=== PATIENT | female | born 1995 | race Caucasian/White ===

== ENCOUNTER 2018-01-21 07:49 | Outpatient (CLI) | payer OTHER | END 2018-01-21 07:50 | disposition home or self-care (01) | LOC: BICULT 07:49 | PROVIDERS: ATTEND Family Medicine | DX: Z34.80 Encounter for supervision of other normal pregnancy, unspecified trimester (principal); Z3A.21 21 weeks gestation of pregnancy | CPT/HCPCS: 76805 ==

== ENCOUNTER 2018-05-13 12:34 | Outpatient (CLI) | payer OTHER ==
--- NOTE | 2018-05-13 15:22 | ULT ---
OBSTETRIC SONOGRAM: History Third-trimester gestation. Poor growth. FINDINGS: Multiple transabdominal sonographic views of the gravid uterus show a single intrauterine gestation i n cephalic presentation. Uterine cervix is obscured by the ossified cranium. Grade I placenta is an terior. No evidence of placenta previa. No gross intracranial abnormalities are apparent. Advanced age limits anatomic detail. Amniotic fluid index=7.9. Subjectively lower limits of normal. Measurements are as follows: Biparietal diameter 37 weeks 0 days Head circumference 36 weeks 6 days Abdominal circumference 37 weeks 0 days Femur length 37 weeks 2 days Estimated date of delivery based on today's sonogram is 06/03/18. Hadlock percentile 57%. Estimated weight 6 pounds 13 ounces. IMPRESSION: Single viable intrauterine gestation with estimated gestational age based on today's sonogram of 37 w eeks 0 days. While amniotic fluid index was measured at 7.9, amniotic fluid is subjectively somewhat low. POS: [facility]
== END 2018-05-13 12:35 | disposition home or self-care (01) ==
LOC: SCSULT 12:34
PROVIDERS: ATTEND Family Medicine
DX: O36.5930 Maternal care for other known or suspected poor fetal growth, third trimester, not applicable or unspecified (principal); Z3A.37 37 weeks gestation of pregnancy
CPT/HCPCS: 76815

== ENCOUNTER 2018-05-22 23:48 | Inpatient (IN) | payer OTHER ==
[2018-05-23 00:22] VITALS: BMI 31.8
[2018-05-23] MEDS ORDERED: Ondansetron HCl/PF 4 MG/2 ML Vial IVP PRN ×3 (00:41→08:12)
[2018-05-23] MEDS ORDERED: Promethazine HCl 25 MG/ML VIAL IM PRN ×2 (00:41→03:06)
[2018-05-23] MEDS ORDERED: Butorphanol Tartrate 1 MG/ML VIAL SLOW IVP PRN (00:41)
[2018-05-23] MEDS ORDERED: Acetaminophen 500 MG TAB PO PRN (00:41)
[2018-05-23] MEDS ORDERED: Misoprostol 200 MCG TAB RC PRN (00:45)
[2018-05-23] MEDS ORDERED: NS w/ Oxytocin 10 units 500 ML IV SCH ×2 (00:45)
[2018-05-23] MEDS ORDERED: Lidocaine 1% (PF) 30 ML VIAL SC PRN (00:45)
[2018-05-23] MEDS ORDERED: Ibuprofen 800 MG TAB PO PRN (00:45)
[2018-05-23] MEDS: Lactated Ringer's 1,000 ML IV SCH ×2 (01:00→04:09)
[2018-05-23 01:16] LABS: Hemoglobin 11.3 g/dL (12.0-16.0); Mean Corpuscular HGB CONC 33.9 g/dL (32.0-36.0); Mean Corpuscular Hemoglobin 28.3 pg (27.0-31.0); Mean Corpuscular Volume 83.3 fL (78.0-98.0); Mean Platelet Volume 9.5 fL (7.4-10.4); Platelet Count 181 thou/uL (130-400); Red Blood Cell (RBC) Count 3.99 mill/uL (4.20-5.40); White Blood Cell (WBC) Count 11.4 thou/uL (4.8-10.8)
[2018-05-23 02:07] LABS: HBSAg Index 0.17 S/CO (0-0.99); Hep B Surf Ag Non-Reactive S/CO (NonReactive)
[2018-05-23] MEDS ORDERED: DISCONTINUE ALL PREVIOUS NARCOTICS FS SCH (02:30)
[2018-05-23] MEDS ORDERED: Bupivacaine 0.5% 20 ML, fentaNYL Citrate/PF 400 MCG in Sodium Chloride 0.9% 72 ML EPIDURAL SCH (02:30)
[2018-05-23] MEDS ORDERED: Eucerin (Mineral Oil/Petrolatum,White) 30 gm Jar TOP PRN (03:06)
[2018-05-23] MEDS ORDERED: ePHEDrine/0.9% NaCl/PF SYRINGE 50 mg/10 ml SLOW IVP PRN (03:06)
[2018-05-23] MEDS ORDERED: Acetaminophen 325 MG TAB PO PRN (03:06)
[2018-05-23] MEDS ORDERED: Naloxone HCl 0.4 mg/ml Vial IVP PRN ×2 (03:06)
[2018-05-23] MEDS ORDERED: diphenhydrAMINE 50 MG/ML VIAL IVP PRN (03:06)
[2018-05-23] MEDS ORDERED: Lactated Ringer's 500 ML IV PRN (03:06)
[2018-05-23] MEDS ORDERED: Communication Order-Pharmacy FS SCH (03:15)
[2018-05-23] MEDS ORDERED: fentaNYL Citrate/PF 400 MCG, Bupivacaine 0.5% 20 ML in Sodium Chloride 0.9% 72 ML EPIDURAL SCH (03:15)
[2018-05-23 04:20] LABS: Syphilis Antibody Nonreactive (Nonreactive); Syphilis Antibody Index 0.05 S/CO (<1.00 Non-Reactive)
[2018-05-23] MEDS: NS / Oxytocin 40 units/1000ml 1,000 ML IV SCH ×2 (05:00→06:47)
--- NOTE | 2018-05-23 05:25 | PDOC.OPDEL ---
OB Operative/Delivery Note Delivery Dr/Surgeon: Stefan (Standy by for Dr Toya Dumont) Assist: Maria G, patient's RN Pre-Delivery Diagnosis: active labor Procedure/Post Delivery Dx: spontaneous vaginal delivery - Findings A Sex: male - Additional Findings/Plan Placenta delivered: spontaneous Estimated blood loss: 100 Compilations/Other Findings: I was called for stand-by as Dr Dumont was enroute. I arrived within 2 minutes of being called as baby was delivering, Maria G was first at perineum (patient's nurse). No shoulder issues, baby had effortless, precipitous delivery). Baby vigorous. Placenta out at 0502 (2 minutes after baby) Loose body cord x 1 at No lacerations. Redundant vaginal mucosa noted at introitus but non-lacerated Post delivery plan: routine recovery (Patient also has handwritten note in chart )
[2018-05-23] MEDS ORDERED: Preparation H Ointment 28 GM TUBE PR PRN (08:12)
[2018-05-23] MEDS ORDERED: Benzocaine/Menthol 20-0.5% 60 ML CAN TOP PRN (08:12)
[2018-05-23] MEDS ORDERED: traMADol HCl 50 MG TAB PO PRN (08:12)
[2018-05-23] MEDS ORDERED: Milk Of Magnesia 30 ML UDCUP PO PRN (08:12)
[2018-05-23] MEDS ORDERED: Acetaminophen/Codeine 30-300mg Tablet PO PRN (08:12)
[2018-05-23] MEDS ORDERED: Lanolin Ointment 7 GM TUBE TOP PRN (08:12)
[2018-05-23] MEDS ORDERED: Bisacodyl 10 MG SUPP PR PRN (08:12)
[2018-05-23] MEDS ORDERED: HYDROcodone/Acetaminophen 5/325 mg Tablet PO PRN (08:12)
[2018-05-23] MEDS ORDERED: diphenhydrAMINE 25 MG CAP PO PRN (08:12)
[2018-05-23] MEDS ORDERED: NS / Oxytocin 40 units/1000ml 1,000 ML IV SCH (08:12)
[2018-05-23] MEDS: Ibuprofen 800 MG TAB PO SCH ×3 (09:37→21:24)
[2018-05-23] MEDS: Prenatal Vitamin 1 TAB PO SCH (10:38)
[2018-05-23] MEDS: Docusate Calcium (SURFAK) 240 MG CAP PO SCH ×2 (10:38→21:24)
[2018-05-24] MEDS: Ibuprofen 800 MG TAB PO SCH ×3 (05:56→21:20)
[2018-05-24] MEDS: Docusate Calcium (SURFAK) 240 MG CAP PO SCH ×2 (09:55→21:20)
[2018-05-24] MEDS: Prenatal Vitamin 1 TAB PO SCH (09:55)
[2018-05-25] MEDS: Ibuprofen 800 MG TAB PO SCH (05:19)
[2018-05-25 07:51] VITALS: BP 128/69; TEMP 98.6
[2018-05-25] MEDS: Prenatal Vitamin 1 TAB PO SCH (09:50)
[2018-05-25] MEDS: Docusate Calcium (SURFAK) 240 MG CAP PO SCH (09:50)
== END 2018-05-25 13:55 | disposition home or self-care (01) | DRG 775 ==
LOC: L&D/OP 23:48 → L&D 05-23 00:11 → 3SW 05-23 07:58
PROVIDERS: ADMIT Family Medicine; ATTEND Family Medicine
PROC: 10E0XZZ Delivery of Products of Conception, External Approach (ICD-10-PCS; principal; 2018-05-23)
DX: O41.03X0 Oligohydramnios, third trimester, not applicable or unspecified (principal); O69.81X0 Labor and delivery complicated by cord around neck, without compression, not applicable or unspecified; Z3A.39 39 weeks gestation of pregnancy; Z37.0 Single live birth; O76 Abnormality in fetal heart rate and rhythm complicating labor and delivery
CPT/HCPCS: 51702; 85027; 86780; 86850; 86900; 86901; 87340; J3010; J3490; J7050

== ENCOUNTER 2019-06-11 18:44 | Emergency (ER) | payer OTHER, SELFPAY ==
[2019-06-11] MEDS ORDERED: Ondansetron ODT 4 MG TAB ONE (19:41)
--- NOTE | 2019-06-11 20:07 | RAD ---
RIGHT WRIST THREE VIEWS: History: Fall on wrist. FINDINGS: There is subtle irregularity to the base of the fifth metacarpal. This is suspicious for a nondisplac ed fracture. Clinical correlation as to the exact area of patient's pain. IMPRESSION: Suggestion of a nondisplaced base of fifth metacarpal fracture. POS: [facility]
--- NOTE | 2019-06-11 20:08 | RAD ---
RIGHT WRIST THREE VIEWS: History: Wrist injury. FINDINGS: There is some subtle lucency along the cortex of the base of the fifth metacarpal suspicious for a mendez btle fracture. No other findings. IMPRESSION: Findings suspicious for a base of fifth metacarpal fracture. POS: [facility]
== END 2019-06-11 20:04 | disposition home or self-care (01) ==
LOC: ERS 18:44
DX: S62.316A Displaced fracture of base of fifth metacarpal bone, right hand, initial encounter for closed fracture (principal); Z87.891 Personal history of nicotine dependence; W19.XXXA Unspecified fall, initial encounter
CPT/HCPCS: 29125; 99406; Q0162

== ENCOUNTER 2019-07-30 10:43 | Emergency (ER) | payer SELFPAY ==
[2019-07-30] MEDS ORDERED: Acetaminophen 500 MG TAB ONE (11:16)
[2019-07-30 12:04] LABS: Bilirubin Negative (Negative); Blood, Urine Trace (Negative); Clarity Turbid (Clear); Glucose, Urine (Dipstick) Normal (Negative); Leukocyte 500 Leu/uL (Negative); Nitrite 1+ (Negative); Protein, Urine (Dipstick) 20 mg/dL (Neg-Trace); Urobilinogen Normal mg/dL (Less than 2); WBC/HPF Greater than 50 HPF (0-3)
[2019-07-30 12:06] LABS: Pregnancy Test - Urine (BHCG) Negative (Negative); Pregu Control Background? CLEAR/WHITE (CLR/WHITE); Pregu Control Bar Appear? YES (CONTROL BAR); Specific Gravity 1.027 (1.002-1.036)
[2019-07-30 12:18] LABS: Bacteria/HPF 2+ HPF (None Seen)
== END 2019-07-30 13:46 | disposition home or self-care (01) ==
LOC: ERS 10:43
DX: N12 Tubulo-interstitial nephritis, not specified as acute or chronic (principal); F41.9 Anxiety disorder, unspecified
CPT/HCPCS: 81003; 81015; 81025; 87804; 99283

== ENCOUNTER 2019-08-03 22:21 | Emergency (ER) | payer SELFPAY ==
[2019-08-04 01:14] LABS: Bilirubin Negative (Negative); Blood, Urine 2+ (Negative); Clarity Turbid (Clear); Glucose, Urine (Dipstick) Normal (Negative); Leukocyte 500 Leu/uL (Negative); Nitrite Negative (Negative); Protein, Urine (Dipstick) 20 mg/dL (Neg-Trace); WBC/HPF Greater than 50 HPF (0-3)
[2019-08-04 01:15] LABS: Bacteria/HPF 1+ HPF (None Seen); Pregnancy Test - Urine (BHCG) Negative (Negative); Pregu Control Background? CLEAR/WHITE (CLR/WHITE); Pregu Control Bar Appear? YES (CONTROL BAR); Specific Gravity 1.028 (1.002-1.036)
== END 2019-08-04 01:46 | disposition home or self-care (01) ==
LOC: ERS 22:21
DX: N10 Acute pyelonephritis (principal); Z79.899 Other long term (current) drug therapy
CPT/HCPCS: 81003; 81015; 81025; 99283

== ENCOUNTER 2020-06-13 20:55 | Day surgery (SDC) | payer OTHER ==
[2020-06-13 21:27] VITALS: BP 133/77; TEMP 98.4; BMI 35.9
[2020-06-13] MEDS ORDERED: hydrALAZINE 20 MG/ML VIAL SLOW IVP PRN (21:57)
--- NOTE | 2020-06-13 22:41 | PDOC.FPROB ---
FMR OB H&P: HPI - History of Present Illness Chief Complaint: Vaginal pain, clear discharge Indentification: 25 yo History of Present Illness: Patient presents to L&D for vaginal pain and clear discharge that has been present for 2 days. She describes the pain as sharp, stabbing vaginal pain that is constant. She reports similar pain prior to having her first child, but does not believe she is have contractions. She reports that she feels as if she is peeing her pants and that the leakage is worse with sneezing, coughing, and standing up. She reports that the leakage is constant and she has had to change her pants one. She denies vaginal bleeding and endorses good movement. She reports that the last time she had sexual intercourse was over 2 months ago and was with the same partner. She denies any history of STIs. Denies dysuria, headache, N/V/D, abdominal pain. Reports hx of gDM and gHTN in previous pregnancies. Did not f/u for 2 hour confirmatory test this , but reports that she measures her sugars at home and has changed her diet. Reports blood sugar of 90 2 hrs PP yesterday even. Patient was taking an aspirin this but stopped taking it 3 weeks ago. Primary Care Physician: KORTNEY Robles FMR OB H&P: Current - Care : 3 Para: 2 Due date: 07/04/2020 - OB Labs Blood type: O RH: positive Antibody Screen: negative HIV: negative RPR: negative HepBsAg: negative Rubella: immune Urine drug screen: not done Gonorrhea: negative Chlamydia: negative 1 hour gtt: 192 3 hour GTT: Not done A1c: 5.4 (05/27/2020) GBS: unknown H&H: 11.2/33.2 (05/27) Platelets: 215 Additional labs: CMP: normal Pr:Cr ratio: 173 FMR OB H&P: History - Past Medical History PMH: Denies - OB History OB History: Hx of GDM, Hx of gHTN, Hx of PPH at 38 wks - complicated by gHTN at 40 wks - complicated by PPH, laceration (unknown degree), A1GDM - [employer] History [employer] History: LMP: 09/28/2019 Last Pap: 2018, no hx of abnormal paps Denies STIs - Surgical History Sx History: Tonsillectomy/adenoidectomy, appendectomy - Social History Social History: Denies t/a/d. Lives in [place] with partner and children. Not currently working - Family History Family History: Dad: Diabetes, HTN Mom: stroke at young age, CAD FMR OB H&P: Medications - Current Home Medications: Medication Instructions Recorded Confirmed Type Vit 10/Iron/Folic/Dha 1 tablet PO DAILY 01/16/16 06/13/20 History [Vitafol-OB+DHA Combo Pack] metroNIDAZOLE [Flagyl] 500 mg PO BID #14 tab 06/13/20 Rx Allergies/Adverse Reactions: Allergies Allergy/AdvReac Type Severity Reaction Status Date / Time No Known Drug Allergies Allergy Verified 06/13/20 21:19 FMR OB H&P: ROS - Review of Systems General: denies: fever/chills Eyes: denies: vision changes, double vision ENT: denies: nasal congestion, rhinorrhea Cardiovascular: reports: edema. denies: chest pain, palpitation Respiratory: denies: cough, shortness of breath Gastrointestinal: denies: abdominal pain, nausea, vomiting, diarrhea Genitourinary (Female): reports: vaginal discharge, vaginal pain. denies: dysuria, vaginal bleeding Musculoskeletal: denies: pain, stiffness Neurologic: denies: numbness Integumentary: denies: itching, rash Psychological: reports: anxiety. denies: depression FMR OB H&P: Vital Signs - Maternal Vital signs: Vital Signs - First Documented Temp Pulse Resp BP 98.4 F 86 18 133/77 06/13/20 21:18 06/13/20 21:18 06/13/20 21:18 06/13/20 21:18 FMR OB H&P: Physical Exam - Physical Exam General: NAD HEENT: normocephalic and atraumatic, grossly normal vision, grossly normal hearing Neck: supple, FROM Heart: RRR, normal S1/S2, no murmurs/rubs/gallops General: CTAB, no respiratory distress, good air movement, no rales/rhonchi, no wheezing Abdomen: gravid, non-tender Musculoskeletal: FROM in all four extremities Neurological: cranial nerves II through XII intact, sensation to pain,touch and proprioception grossly normal Skin: no rash Lymphatic: no unusual bruising or bleeding, no purpura, no petechia Psychiatric: intact recent and remote memory, good judgement and insight, normal mood and affect - Pelvic Exam Vulva: normal hair distribution, appropriate dejuan stage Deviation from normal: thick, yellow, malodorous discharge; no gross leakage with valsalva SVE: 3/0/-2 Presentation: breech FMR OB H&P: A/P - Problem List (1) Bacterial vaginosis Current Visit: Yes Status: Acute Code(s): N76.0 - ACUTE VAGINITIS; B96.89 - OTH BACTERIAL AGENTS THE CAUSE OF DISEASES CLASSD [id number] (2) Term Current Visit: Yes Status: Acute Code(s): Z34.80 - ENCOUNTER FOR SUPRVSN OF NORMAL , UNSP TRIMESTER Comment: Discussion: Date/Time: 06/13/20 2241 25 yo @ 37.1 wga by LMP/16.6 wk US who presents for vaginal pain and discharge sIUP r/o PROM - No contractions on toco - FHT: reactive - SVE: 3/0/-2 - Breech on bedside US - Follows with MFM for IUGR, released yesterday due to normal weight - Failed 1 hr glucose test, did not f/u for 2 hr confirmatory test, reports that she is checking her sugars at home, reports 2 hr PP of 90 yesterday evening - Amnisure ordered, negative - VP3 ordered, positive for BV Breech Presentation - discussed possibility of external cephalic version - will call [facility] tomorrow to schedule patient Will discharge patient home with prescription for BV infection; continue routine care This H&P was discussed with Dr. Bocanegra and Dr. Pro who agree with the above documentation and plan.
[2020-06-13 22:48] LABS: Amnisure Test No Membranes Rupture (No Rupture)
[2020-06-13 22:49] LABS: Amnisure Internal Control QC ACCEPTABLE (ACCEPTABLE)
[2020-06-14] MEDS ORDERED: FLU VACC QS2020-21(6MOS UP)/PF 60 MCG/0.5 ML SYRINGE IM ONE (09:00)
== END 2020-06-13 23:35 | disposition home or self-care (01) ==
LOC: L&D/OP 20:55
PROVIDERS: ATTEND Family Medicine
DX: O99.89 Other specified diseases and conditions complicating pregnancy, childbirth and the puerperium (principal); R10.2 Pelvic and perineal pain; N89.8 Other specified noninflammatory disorders of vagina; O23.593 Infection of other part of genital tract in pregnancy, third trimester; B96.89 Other specified bacterial agents as the cause of diseases classified elsewhere; O32.1XX0 Maternal care for breech presentation, not applicable or unspecified; Z3A.37 37 weeks gestation of pregnancy
CPT/HCPCS: 84112; 87081; 87480; 87510; 87660

== ENCOUNTER 2020-06-24 22:11 | Inpatient (IN) | payer OTHER ==
[~2020-06-24 22:11] MED LIST: Bupivacaine 0.25% HCL 30 ML VIAL ONE
[2020-06-24 22:43] VITALS: BMI 35.9
[2020-06-24 23:20] LABS: Amnisure Test No Membranes Rupture (No Rupture)
[2020-06-24 23:21] LABS: Amnisure Internal Control QC ACCEPTABLE (ACCEPTABLE)
[2020-06-24] MEDS ORDERED: hydrALAZINE 20 MG/ML VIAL SLOW IVP PRN (23:25)
--- NOTE | 2020-06-24 23:25 | PDOC.FPROB ---
FMR OB H&P: HPI - History of Present Illness Chief Complaint: thinks water broke History of Present Illness: Pt is a 25 yo at 38.5 by sure LMP confirmed with 17.5 wk sono who presents thinking her water broke at 2200. She has had contractions for a week, and they are getting closer together q10 min and more intense. Endorses good movement, denies VB/VD. has been complicated by gHTN and A1GDM. FMR OB H&P: Current - Care : 3 Para: 2 Gestational age: 38.5 Due date: 07/04/20 Dating Criteria: LMP/17.5wk sono - OB Labs Blood type: O RH: positive HIV: negative RPR: negative Gonorrhea: negative Chlamydia: negative Pap Smear: NILM 01/2018 1 hour gtt: 192 A1c: 5.1 GBS: positive FMR OB H&P: History - Past Medical History PMH: psoriasis, migraines, Hep C Ab pos with viral load negative - OB History OB History: 2016- @ 40 weeks , PPH, laceration of uknown degree, A1GDM 2018- @ 38 weeks , gHTN this : gHTN and A1GDM GBS positive - [employer]GER [employer] History [employer] History: LMP 09/28/19 Menarche 13 - Surgical History Sx History: appendectomy, tonsillectomy/adenoidectomy - Social History Social History: denies drug, tobacco or alcohol use - Family History Family History: mother: stroke, MIO s /p stent father: DM. HTN FMR OB H&P: Medications - Current Home Medications: Medication Instructions Recorded Confirmed Type Vit 10/Iron/Folic/Dha 1 tablet PO DAILY 01/16/16 06/24/20 History [Vitafol-OB+DHA Combo Pack] metroNIDAZOLE [Flagyl] 500 mg PO BID #14 tab 06/13/20 06/24/20 Rx Allergies/Adverse Reactions: Allergies Allergy/AdvReac Type Severity Reaction Status Date / Time No Known Drug Allergies Allergy Verified 06/24/20 22:36 FMR OB H&P: ROS - Review of Systems General: denies: fever/chills Eyes: denies: vision changes, double vision Cardiovascular: denies: chest pain, edema Respiratory: denies: cough, shortness of breath Gastrointestinal: denies: abdominal pain, nausea, vomiting, bright red blood Genitourinary (Female): reports: contractions. denies: vaginal discharge, vaginal bleeding, vaginal pressure Neurologic: denies: numbness, weakness Integumentary: denies: itching, rash Hematologic/Lymphatic: denies: prolonged or excessive bleeding FMR OB H&P: Vital Signs - Maternal Vital signs: Vital Signs - First Documented Temp Pulse Resp BP 98.7 F 103 H 18 133/79 06/24/20 22:35 06/24/20 22:35 06/24/20 22:35 06/24/20 22:35 FMR OB H&P: Physical Exam - Physical Exam General: NAD, awake, alert and oriented HEENT: normocephalic and atraumatic, PERRLA, EOMI, MMM, conjunctiva clear Neck: supple, FROM Chest: non-tender to palpation Heart: RRR, normal S1/S2 General: CTAB Abdomen: soft, gravid Musculoskeletal: normal gait and station, pulses present Neurological: cranial nerves II through XII intact, no clonus, no focal deficit Skin: no rash Lymphatic: no unusual bruising or bleeding Psychiatric: intact recent and remote memory - Pelvic Exam SVE: Membranes: intact Presentation: cephalic FMR OB H&P: A/P Disposition: Pt is a 25 yo at 38.5 by sure LMP confirmed with 17.5 wk sono who presents thinking her water broke at 2200. # Rule out labor -Amnisure negative -initial cervical check , repeat was -donna q -patient desires epidural #GBS positive -will start Penicillin ppx as patient is in labor #A1GDM -aware, monitor sugars #gHTN -aware, monitor BP Admit for labor and anticipate . Discussion: Date/Time: 06/24/202305 This H&P was discussed with Dr. Cormier and Dr. Reddy who agree with the above documentation and plan. Addendum - Attending - Attending Attestation Date/Time: 06/24/20 3710 I personally evaluated the patient and discussed the management with Dr. Pal I agree with the History, Examination, Assessment and Plan documented above with any addition or exceptions noted below- 25 yo @38.5 weeks presented c/o LOF and ctx q10 min. (+) FM Denies any VB, JEWELL. Initial exam /-2. Cat 1 FHTs [place] ctx q7-10 min. Amnisure negative. Patient walked for 1 hour and repeat exam /-2 and then had SROM. Will admit to L&D for labor and SROM. GBS(+) will start PCN prophylaxis
[2020-06-25] MEDS ORDERED: Acetaminophen 500 MG TAB PO PRN (00:36)
[2020-06-25] MEDS ORDERED: Misoprostol 200 MCG TAB PR PRN (00:36)
[2020-06-25] MEDS ORDERED: Lidocaine 1% (PF) 30 ML VIAL SC PRN (00:36)
[2020-06-25] MEDS ORDERED: Ibuprofen 800 MG TAB PO PRN (00:36)
[2020-06-25] MEDS ORDERED: Ondansetron PF 4 MG/2 ML Vial IVP PRN ×2 (00:36→02:13)
[2020-06-25] MEDS ORDERED: NS / Oxytocin 40 units/1000ml 1,000 ML IV PRN (00:36)
[2020-06-25] MEDS ORDERED: Promethazine HCl 25 MG/ML VIAL IM PRN ×2 (00:36→02:13)
[2020-06-25] MEDS ORDERED: Carboprost 250 MCG/ML AMP IM PRN (00:36)
[2020-06-25] MEDS ORDERED: Butorphanol Tartrate 1 MG/ML VIAL SLOW IVP PRN (00:36)
[2020-06-25] MEDS ORDERED: Penicillin G Potassium 5 MILL.UNITS VIAL ONE (00:39)
[2020-06-25] MEDS ORDERED: Lactated Ringer's 1,000 ML IV SCH (00:45)
[2020-06-25 00:56] LABS: Hemoglobin 10.8 g/dL (12.0-16.0); Mean Corpuscular HGB CONC 33.4 g/dL (32.0-36.0); Mean Corpuscular Volume 80.9 fL (78.0-98.0); Mean Platelet Volume 9.5 fL (7.4-10.4); Platelet Count 222 thou/uL (130-400); RBC Distribution Width 14.2 % (11.5-14.5); White Blood Cell (WBC) Count 11.9 thou/uL (4.8-10.8)
[2020-06-25] MEDS ORDERED: Penicillin G Potassium 5 MILL.UNITS in Sodium Chloride 0.9% 100 ML IVPB SCH (01:00)
[2020-06-25 01:28] LABS: Syphilis Antibody Nonreactive (Nonreactive); Syphilis Antibody Index 0.04 S/CO (<1.00 Non-Reactive)
[2020-06-25 01:33] LABS: HBSAg Index 0.15 S/CO (0-0.99); Hep B Surf Ag Non-Reactive S/CO (NonReactive)
[2020-06-25] MEDS ORDERED: Fentanyl 4 mcg/Bup 0.1% Cadd 100 ML ONE (01:43)
[2020-06-25 01:50] LABS: Glucose 112 mg/dL (70-105)
[2020-06-25] MEDS ORDERED: Lactated Ringer's 500 ML IV PRN (02:13)
[2020-06-25] MEDS ORDERED: diphenhydrAMINE 50 MG/ML VIAL IVP PRN (02:13)
[2020-06-25] MEDS ORDERED: Naloxone HCl 0.4 mg/ml Vial IVP PRN ×2 (02:13)
[2020-06-25] MEDS ORDERED: EPHEDRINE 25 MG/5 ML SYRINGE SLOW IVP PRN (02:13)
[2020-06-25] MEDS ORDERED: Communication Order-Pharmacy FS SCH (02:15)
[2020-06-25] MEDS ORDERED: Fentanyl 4 mcg/Bupivacaine 0.1% Cassette 100 ML EPIDURAL SCH (02:15)
[2020-06-25] MEDS ORDERED: Penicillin G 2.5 MILL.units 2.5 MILL.UNITS in Premix Bag 1 BAG IVPB SCH (04:00)
[2020-06-25] MEDS ORDERED: Adacel (T-DAP) 0.5 ML SYRINGE IM ONE (05:48)
[2020-06-25] MEDS ORDERED: Lanolin Ointment 7 GM TUBE TOP PRN (05:48)
[2020-06-25] MEDS ORDERED: hydrALAZINE 20 MG/ML VIAL SLOW IVP PRN (05:48)
[2020-06-25] MEDS ORDERED: Bisacodyl 10 MG SUPP PR PRN (05:48)
[2020-06-25] MEDS ORDERED: Milk Of Magnesia 30 ML UDCUP PO PRN (05:48)
[2020-06-25] MEDS ORDERED: Acetaminophen/Codeine 30-300mg Tablet PO PRN (05:48)
[2020-06-25] MEDS ORDERED: NS / Oxytocin 40 units/1000ml 1,000 ML IV SCH (06:00)
--- NOTE | 2020-06-25 06:33 | PDOC.EVN ---
Event Note - Event Note Event Note: FM Attending I was present, assisted and supervised the of a viable female infant in vertex presentation to this 25 yo @38.3 weeks. Apgars 7/9. No nuchal cord, Shoulders and body delivered easily. Placenta delivered spontaneously and intact. 3V cord. No epis or lacerations. Redundant vaginal tag/hymenal remnant noted at delivery. QBL 250mL. Infant and mother in stable condition.
--- NOTE | 2020-06-25 06:44 | PDOC.EVN ---
Event Note - Event Note Event Note: Labor Progress: Patient remained resting comfortably on all checks. Vitals WNL. monitoring showed a category 1 strip throughout labor. 6/70 /-2 @015 6/80/-2 @ 0230, epidural 7/90/-2 @0500 AROM clear fluid with scant blood, complaining of pressure 9.5/100/-2 @ 0515, complaining of alot of pressure 10/100/-1 @ 0531
[2020-06-25] MEDS: Acetaminophen 325 MG TAB PO PRN ×2 (09:51→20:27)
[2020-06-25] MEDS: Ferrous Sulfate 325 MG TAB PO SCH ×2 (10:58→17:29)
[2020-06-25] MEDS: Ibuprofen 800 MG TAB PO SCH ×3 (10:58→21:37)
[2020-06-25] MEDS: Prenatal Vitamin 1 TAB PO SCH (11:26)
[2020-06-25] MEDS: Docusate Calcium (SURFAK) 240 MG CAP PO SCH ×2 (11:26→21:37)
[2020-06-25 12:06] LABS: SARS-CoV-2 MS2 Positive; SARS-CoV-2 N Gene Negative; SARS-CoV-2 S Gene Negative; SARS-CoV-2 by NAA Not Detected (NotDetected); SARS-CoV-2 orf1ab Negative
--- NOTE | 2020-06-25 12:17 | DN ---
DATE OF PROCEDURE: 06/25/2020 DELIVERING PHYSICIANS: 1. Jacque Pal MD, PGY-1. 2. Maria G Robles MD, PGY-2. ATTENDING PHYSICIAN: Maris Reddy MD PROCEDURE: Spontaneous vaginal delivery. ANESTHESIA: Epidural. QBL: 250 mL. PREOPERATIVE DIAGNOSES: 1. Term intrauterine in labor. 2. History of A1 gestational diabetes and gestational hypertension. POSTOPERATIVE DIAGNOSES: 1. Term intrauterine , delivered. 2. History of A1 gestational diabetes and gestational hypertension. DELIVERY NOTE: A 25-year-old female, G3, P2, at 38 and 5 weeks, who delivered a viable female infant at 0536 following an uneventful antepartum course. A vigorous female was delivered over an intact perineum in the occipitoanterior position. Anterior shoulder and remainder of the body delivered. No nuchal cord. The head was held down and mouth and nares were bulb suctioned. Cord clamped after delayed cord clamping and cut and cord blood collected. Placenta delivered intact in Rangel presentation with a 3-vessel cord noted. Fundal massage was performed. The fundus was firm. The cervix and vagina were inspected and found to be free of laceration. However, of note, there was redundant vaginal tissue that was apparent on exam. Infant went to nursery in good condition for routine care. Apgars were 7 and 9 at 1 and 5 minutes respectively. The patient tolerated delivery well and went to after routine recovery care. Dr. Reddy was present and teaching throughout the whole delivery. Job ID: [id number] MTDD
[2020-06-26] MEDS: Ibuprofen 800 MG TAB PO SCH ×2 (05:25→14:38)
--- NOTE | 2020-06-26 05:53 | PDOC.OBPPN ---
FMR OB PN: Subj - Interval History Hospital Day: 3 Day: 1 Chief Complaint: breast tenderness with feeding Indentification: 25F >3 delivered viable F @ 38.5wga on 06/25 @ 0536 via Interval History: Mild lochia, uterus firm, breast feeding with tenderness, mild vaginal pain FMR OB PN: Obj - Maternal Vital signs: BP: [121/64] HR: [85] RR: [18] Tmax: [99.9] Pox: [98]% on [RA] Wt: [101.15kg] - Urine output I&O: 06/24/20 06/25/20 06/26/20 06:59 06:59 06:59 Intake Total 960 Output Total 888 Balance 72 - Lochia Lochia: mild - Pain Management Intervention: oral medication FMR OB PN: Exam - Physical Exam General: NAD, awake, alert and oriented HEENT: normocephalic and atraumatic, EOMI, MMM Neck: supple, FROM, trachea midline Chest: non-tender to palpation Breast: symmetric, no erythema, no nipple discharge Heart: RRR, normal S1/S2 General: CTAB, no respiratory distress Abdomen: soft, fundus(cm) (below umbilicus), bowel sound present Musculoskeletal: normal gait and station, pulses present, FROM in all four extremities Neurological: cranial nerves II through XII intact, sensation to pain,touch and proprioception grossly normal Skin: no rash, good tugor, capillary refill <2 seconds : no edema, appropriately tender Lymphatic: no unusual bruising or bleeding, no purpura Psychiatric: intact recent and remote memory, good judgement and insight, normal mood and affect FMR OB PN: Data - Labs Lab results: Laboratory Results - last 24 hr 06/25/20 06/25/20 06/25/20 01:03 11:50 21:47 POC Glucose 153 H 110 H SARS-CoV-2 (PCR) Not Detected 06/26/20 05:35 POC Glucose 140 H SARS-CoV-2 (PCR) FMR OB PN: A/P - Problem List (1) care and examination Current Visit: Yes Status: Acute Code(s): Z39.2 - ENCOUNTER FOR ROUTINE FOLLOW-UP Disposition: Patient is a 25F >3 that delivered a viable F infant via at 38.5wga on 06/25 @ 0536. # Day 1 - with some tenderness; will have see patient today -mild lochia, mild vaginal pain -endorses some back pain where the epidural was -encourage routine care -encourage patient to f/u at [facility] at 2 weeks, baby to f/u at [facility] on Wednesday -likely d/c today pending baby's bili #Hx of gHTN -Patient's blood pressures have ranged 120-139/64-79 -encourage mother to continue to monitor blood pressure at home -will f/u at post visit #Hx of A1GDM -accuchecks yesterday: 112, 153, 110, 140 -will follow up at 6wk check Diet: Regular Dispo: Likely d/c today pending baby's bili; patient to f/u at [facility] in 2 weeks Discussion: Date/Time: 06/26/20 3499 This H&P was discussed with [Nona] who agrees with the above documentation and plan. Signature: Maria G Robles MD PGY-2 Addendum - Attending - Attending Attestation Date/Time: 06/26/20 3689 I personally evaluated the patient and discussed the management with Dr. Robles I agree with the History, Examination, Assessment and Plan documented above with any addition or exceptions noted below. possible d/c this afternoon if baby able to have f/u tomorrow. Needs f/u for gHTN w/n 72 hrs of d/c at PNC.
[2020-06-26] MEDS: Ferrous Sulfate 325 MG TAB PO SCH ×2 (09:08→17:05)
[2020-06-26] MEDS: Prenatal Vitamin 1 TAB PO SCH (09:08)
[2020-06-26] MEDS: Docusate Calcium (SURFAK) 240 MG CAP PO SCH (09:08)
[2020-06-26 11:55] VITALS: BP 114/57; TEMP 98.2
== END 2020-06-26 18:40 | disposition home or self-care (01) | DRG 807 ==
LOC: L&D/OP 22:11 → L&D 06-25 04:35 → 3SE 06-25 10:37
PROVIDERS: ADMIT Family Medicine; ATTEND Family Medicine
PROC: 10E0XZZ Delivery of Products of Conception, External Approach (ICD-10-PCS; principal; 2020-06-25)
PROC: 10907ZC Drainage of Amniotic Fluid, Therapeutic from Products of Conception, Via Natural or Artificial Opening (ICD-10-PCS; 2020-06-25)
DX: O13.4 Gestational [pregnancy-induced] hypertension without significant proteinuria, complicating childbirth (principal); Z37.0 Single live birth; Z20.828 Contact with and (suspected) exposure to other viral communicable diseases; B95.1 Streptococcus, group B, as the cause of diseases classified elsewhere; O24.429 Gestational diabetes mellitus in childbirth, unspecified control; Z3A.38 38 weeks gestation of pregnancy; Z90.49 Acquired absence of other specified parts of digestive tract; O99.824 Streptococcus B carrier state complicating childbirth
CPT/HCPCS: 36415; 36416; 51702; 82947; 84112; 85027; 86780; 86850; 86900; 86901; 87340; 87635; 99285; J2540; S0020; U0003

== ENCOUNTER 2021-05-24 18:21 | Emergency (ER) | payer OTHER | END 2021-05-24 20:59 | disposition home or self-care (01) | LOC: ERS 18:21 | DX: S63.502A Unspecified sprain of left wrist, initial encounter (principal); W01.0XXA Fall on same level from slipping, tripping and stumbling without subsequent striking against object, initial encounter ==

== ENCOUNTER 2024-01-20 18:47 | Emergency (ER) | payer OTHER ==
[2024-01-20] MEDS ORDERED: predniSONE 20 MG TAB ONE (20:34)
[2024-01-20] MEDS ORDERED: Acetaminophen 500 MG TAB ONE (20:34)
[2024-01-20 20:41] LABS: Influenza A by NAA Not Detected (NotDetected); Influenza B by NAA Not Detected (NotDetected); SARS-CoV-2 NAA Rapid Test Not Detected (NotDetected)
[2024-01-20] MEDS ORDERED: Guaifenesin DM 100-10/5 ML UDCUP ONE ×2 (20:51→20:53)
[2024-01-20 21:05] LABS: Bilirubin Negative (Negative); Blood, Urine Negative (Negative); Glucose, Urine (Dipstick) Negative (Negative); Ketone, Urine Negative (Negative); Leukocyte Negative (Negative); Nitrite Negative (Negative); Protein, Urine (Dipstick) Negative (Neg-Trace); Urobilinogen 0.2 mg/dL (Less than 2)
[2024-01-20 21:07] LABS: Bacteria/HPF None Seen HPF (None Seen); CAUTI Indications for Culture Dysuria,urgency,freq; RBC/HPF 0-3 HPF (0-3); Squamous Epithelial 0-3 HPF (0-3); WBC/HPF 0-3 HPF (0-3)
[2024-01-20 21:08] LABS: Clarity Clear (Clear)
[2024-01-20 21:09] LABS: Urine Culture Reflex No No
== END 2024-01-20 22:14 | disposition home or self-care (01) ==
LOC: ERS 18:47
DX: B34.9 Viral infection, unspecified (principal); J32.9 Chronic sinusitis, unspecified; H65.93 Unspecified nonsuppurative otitis media, bilateral
CPT/HCPCS: 71045; 74177; 81001; 93005; J7512